=== PATIENT | female | born 1930 | race Caucasian/White ===

== ENCOUNTER 2017-06-19 09:41 | Emergency (ER) | payer MEDICARE ==
[2017-06-19] MEDS ORDERED: IPRATROPIUM/ALBUTEROL 0.5-2.5 MG/3 ML AMPUL NEB ONE (10:14)
[2017-06-19] MEDS ORDERED: ONDANSETRON 4 MG TAB.RAPDIS PO ONE (10:15)
[2017-06-19 10:49] LABS: ABSOLUTE EOSINOPHILS # (AUTO) 0.3 10^3/uL (0.0-0.6); ABSOLUTE LYMPHOCYTES (AUTO) 1.6 10^3/uL (0.5-4.7); ABSOLUTE MONOCYTES (AUTO) 0.4 10^3/uL (0.1-1.4); ABSOLUTE NEUT (AUTO) 4.1 10^3/uL (1.7-8.2); BASOPHILS % (AUTO) 0.4 % (0-2); EOSINOPHILS % (AUTO) 4.4 % (0-6); HEMATOCRIT 37.7 % (36.0-47.0); HEMOGLOBIN 12.5 g/dL (12.0-15.5); LYMPHOCYTES % (AUTO) 24.4 % (13-45); MEAN CORPUSCULAR HEMOGLOBIN 26.3 pg (27.0-33.4); MEAN CORPUSCULAR HGB CONC 33.2 g/dL (32.0-36.0); MEAN CORPUSCULAR VOLUME 79 fl (80-97); MONOCYTES % (AUTO) 6.4 % (3-13); PLATELET COUNT 156 10^3/uL (150-450); RED BLOOD COUNT 4.76 10^6/uL (3.72-5.28); RED CELL DISTRIBUTION WIDTH 19.9 % (11.5-14.0); SEGMENTED NEUTROPHILS % (AUTO) 64.4 % (42-78); TOTAL CELLS COUNTED % (AUTO) 100 %; WHITE BLOOD COUNT 6.4 10^3/uL (4.0-10.5)
[2017-06-19 11:03] LABS: ALANINE AMINOTRANSFERASE 23 U/L (9-52); ALBUMIN 4.2 g/dL (3.5-5.0); ALKALINE PHOSPHATASE 62 U/L (38-126); ANION GAP 12 (5-19); ASPARTATE AMINO TRANSFERASE 20 U/L (14-36); BILIRUBIN,DIRECT 0.3 mg/dL (0.0-0.4); BILIRUBIN,TOTAL 0.5 mg/dL (0.2-1.3); BLOOD UREA NITROGEN 15 mg/dL (7-20); CALCIUM 10.1 mg/dL (8.4-10.2); CARBON DIOXIDE 24 mmol/L (22-30); CHLORIDE 100 mmol/L (98-107); GLUCOSE 103 mg/dL (75-110); POTASSIUM 4.7 mmol/L (3.6-5.0); SODIUM 136.1 mmol/L (137-145); TOTAL PROTEIN 6.5 g/dL (6.3-8.2)
--- NOTE | 2017-06-19 11:08 | ER Document Report ---
ED General - General Chief Complaint: Cough Stated Complaint: CONGESTION, COUGH Time Seen by Provider: 06/19/17 09:58 Mode of Arrival: Ambulatory Information source: Patient, Relative TRAVEL OUTSIDE OF THE [place] IN LAST 30 DAYS: No - HPI Notes: Patient is a 87-year-old female with history of hypertension and dementia presents to the emergency department with report of cough congestion the patient 's had for the last 5 days with generalized malaise and questionable fever. Patient also describes some nausea. She reports chest pain of gradual onset and worsening associated only with the cough. The patient denies any vomiting or diarrhea or dysuria or radiation of chest pain or constipation or diarrhea. Patient's son reports he has had a minimal cough but no fever. The patient is from [place] but is out here for the of her son which was several days ago and she was out of the cold for the service. The patient was placed upon cefuroxime antibiotic 4 days ago by her regular practitioner based upon a phone interview. Other medications aspirin iron pills multivitamin propranolol lisinopril and donezepil. - Related Data Allergies/Adverse Reactions: No Known Allergies Allergy (Verified 06/19/17 09:42) Past Medical History - General Information source: Patient - Social History Smoking Status: Former Smoker Chew tobacco use (# tins/day): No Frequency of alcohol use: Rare Drug Abuse: None Lives with: Family Family History: Reviewed & Not Pertinent Patient has suicidal ideation: No Patient has homicidal ideation: No Renal/ Medical History: Denies: Hx Peritoneal Dialysis Review of Systems - Review of Systems Notes: REVIEW OF SYSTEMS: CONSTITUTIONAL : No significant weight loss. EENT: Denies eye, ear, throat, or mouth pain or symptoms. Reports nasal and sinus congestion. Denies throat, tongue, or mouth swelling or difficulty swallowing. CARDIOVASCULAR: Denies chest pain. Denies palpitations or racing or irregular heart beat. Denies ankle edema. RESPIRATORY: Reports productive cough GASTROINTESTINAL: Denies abdominal pain or distention. Denies vomiting, or diarrhea. Denies blood in vomitus, stools, or per rectum. Denies black, tarry stools. Denies constipation. GENITOURINARY: Denies difficulty urinating, painful urination, burning, frequency, blood in urine, or discharge. FEMALE GENITOURINARY: Denies vaginal bleeding, heavy or abnormal periods, irregular periods. Denies vaginal discharge or odor. MUSCULOSKELETAL: Denies back or neck pain or stiffness. Denies joint pain or swelling. Reports generalized myalgias. SKIN: Denies rash, lesions or sores. HEMATOLOGIC : Denies easy bruising or bleeding. LYMPHATIC: Denies swollen, enlarged glands. NEUROLOGICAL: Denies confusion or altered mental status. Denies passing out or loss of consciousness. Denies dizziness or lightheadedness. Denies headache. Denies weakness or paralysis or loss of use of either side. Denies problems with gait or speech. Denies sensory loss, numbness, or tingling. Denies seizures. PSYCHIATRIC: Denies anxiety or stress. Denies depression, suicidal ideation, or homicidal ideation. ALL OTHER SYSTEMS REVIEWED AND NEGATIVE. Dictation was performed using [id number] voice recognition software Physical Exam - Vital signs Vitals: Temp Pulse Resp BP Pulse Ox 97.2 F 59 L 16 193/106 H 97 06/19/17 09:45 06/19/17 09:45 06/19/17 09:45 06/19/17 09:45 06/19/17 09:45 - Notes Notes: PHYSICAL EXAMINATION: GENERAL: Well-appearing, well-nourished and in no acute distress. HEAD: Atraumatic, normocephalic. EYES: Pupils equal round and reactive to light, extraocular movements intact, conjunctiva are normal. ENT: oropharynx clear without exudates. Moist mucous membranes. Nares coryza clear. NECK: Normal range of motion, supple without lymphadenopathy LUNGS: Coarse breath sounds with wheezes. No rales. HEART: Regular rate and rhythm without murmurs ABDOMEN: Soft, nontender, nondistended abdomen. No guarding, no rebound. No masses appreciated. Female : deferred Musculoskeletal: Normal range of motion, no pitting or edema. No cyanosis. NEUROLOGICAL: Cranial nerves grossly intact. Normal speech, normal gait. Normal sensory, motor exams PSYCH: Normal mood, normal affect. SKIN: Warm, Dry, normal turgor, no rashes or lesions noted. Course - Re-evaluation Re-evalutation: 06/19/17 11:11 Patient was given Zofran for nausea. Patient was given a DuoNeb for wheezing. After DuoNeb, repeat exam should no wheezing, and the patient had O2 sats 98% on room air. Patient was ambulatory without complaint and felt stable for discharge. She was given a albuterol metered-dose inhaler to take home with her. No evidence for congestive heart failure or pneumonia or anemia or cardiac ischemia or acute OK or other acute process. 06/19/17 13:11 - Vital Signs Vital signs: Temp Pulse Resp BP Pulse Ox 97.2 F 59 L 16 193/106 H 98 06/19/17 09:45 06/19/17 09:45 06/19/17 09:45 06/19/17 09:45 06/19/17 10:15 - Laboratory Result Diagrams: 06/19/17 10:15 06/19/17 10:15 Laboratory results interpreted by me: 06/19/17 06/19/17 06/19/17 10:15 10:15 11:45 MCV 79 L MCH 26.3 L RDW 19.9 H Sodium 136.1 L Est GFR (Non-Af Amer) 58 L Urine Blood MODERATE H Ur Leukocyte Esterase MODERATE H - EKG Interpretation by Ri EKG shows normal: Sinus rhythm Additional EKG results interpreted by me: 06/19/17 11:12 EKG as interpreted by ms showed normal sinus rhythm heart rate 57. There is no gross evidence for acute OK or ischemia noted. There was no old EKG available for comparison. Discharge - Discharge Clinical Impression: COPD with acute exacerbation UTI (urinary tract infection) Qualifiers: Urinary tract infection type: acute cystitis Hematuria presence: without hematuria Qualified Code(s): N30.00 - Acute cystitis without hematuria Condition: Stable Disposition: HOME, SELF-CARE Instructions: Trimethoprim-Sulfa ([facility]), Urinary Tract Infection ([facility]), Chronic Obstructive Lung Disease ([facility]) Additional Instructions: Use your inhaler as needed for any wheezing or cough. Return to the emergency department in case of fever or worsening pain. Follow-up with your regular practitioner in [place]. Prescriptions: Albuterol Sulfate [Proair HFA Inhalation Aerosol 8.5 gm MDI] 2 puff IH Q4H PRN # 1 mdi PRN Reason: Sulfamethoxazole/Trimethoprim [Bactrim Ds Tablet] 1 each PO BID #10 tablet
--- NOTE | 2017-06-19 11:10 | RADIOLOGY REPORT (SQ) ---
EXAM DESCRIPTION: CHEST PA/LAT COMPLETED DATE/TIME: 06/19/2017 11:00 am REASON FOR STUDY: COUGH, CP COMPARISON: None. EXAM PARAMETERS: NUMBER OF VIEWS: two views TECHNIQUE: Digital Frontal and Lateral radiographic views of the chest acquired. RADIATION DOSE: NA LIMITATIONS: Respiratory motion . FINDINGS: LUNGS AND PLEURA: Mild hyperinflation with increased AP diameter chest. Pulmonary emphys loco not excluded No infiltrate, masses or pneumothorax. No pleural effusion. MEDIASTINUM AND HILAR STRUCTURES: No masses or contour abnormalities. HEART AND VASCULAR STRUCTURES: Heart normal size. Normal pulmonary vasculature. Aortic atherosclero sis. BONES: No acute findings. HARDWARE: None in the chest. OTHER: Chest leads in place. Findings suggestive of hiatal hernia. IMPRESSION: Hyperinflation consistent with COPD. TECHNICAL DOCUMENTATION: JOB ID: [id number] [id number] [employer]- All Rights Reserved
[2017-06-19 11:13] LABS: NT PRO BNP 307 pg/mL (<450)
[2017-06-19 11:14] LABS: TROPONIN I < 0.012 ng/mL
[2017-06-19 11:17] LABS: A TYPE INFLUENZA AG NEGATIVE (NEGATIVE); B INFLUENZA AG NEGATIVE (NEGATIVE)
--- NOTE | 2017-06-19 11:58 | EKG REPORT ---
SEVERITY:- NORMAL ECG - SINUS RHYTHM : Confirmed by: Wendy High MD 19-Jun-2017 11:57:50
[2017-06-19 12:11] LABS: APPEARANCE,URINE SLIGHTLY-CLOUDY; BILIRUBIN,URINE NEGATIVE (NEGATIVE); COLOR,URINE YELLOW; GLUCOSE, URINE NEGATIVE (NEGATIVE); KETONES,URINE NEGATIVE (NEGATIVE); LEUKOCYTE ESTERASE,URINE MODERATE (NEGATIVE); NITRITE,URINE NEGATIVE (NEGATIVE); PROTEIN,URINE NEGATIVE (NEGATIVE); URINE SPECIFIC GRAVITY 1.006; UROBILINOGEN,URINE NEGATIVE mg/dL (<2.0)
[2017-06-19] MEDS ORDERED: ALBUTEROL SULFATE HFA (90 MCG/PUFF) 8 GM MDI (1 MDI/ER DISP) IH PRN (13:07)
[2017-06-19] MEDS ORDERED: SULFAMETHOXAZOLE/TRIMETHOPRIM 800-160 MG TABLET PO ONE (13:09)
[2017-06-19] MEDS ORDERED: PREDNISONE 20 MG TABLET PO ONE (13:15)
[2017-06-19 13:49] VITALS: BP 165/77
== END 2017-06-19 13:49 | disposition home or self-care (01) ==
LOC: ER 09:41
DX: J44.1 Chronic obstructive pulmonary disease with (acute) exacerbation (principal); N30.00 Acute cystitis without hematuria; R05 Cough; R07.89 Other chest pain; R53.81 Other malaise; R11.0 Nausea; I10 Essential (primary) hypertension; F03.90 Unspecified dementia, unspecified severity, without behavioral disturbance, psychotic disturbance, mood disturbance, and anxiety; Z79.82 Long term (current) use of aspirin; Z79.899 Other long term (current) drug therapy; Z87.891 Personal history of nicotine dependence
CPT/HCPCS: 93005; 94640; 99284; 36415; 87040; 87086; 83735; 85025; 87088; 80053; 81001; 84484; 83605; 87804; 83880; 71046; 93010; A9270 ×4; J3490; 87186; J7512; J7620; S0119